=== PATIENT | female | born 1980 | race Caucasian/White ===

== ENCOUNTER 2020-04-12 13:07 | Emergency (ER) | payer OTHER ==
[2020-04-12 13:26] VITALS: BP 114/76; PULSE 81; RESP 18; TEMP 98.6
--- NOTE | 2020-04-12 14:00 | XR ---
EXAMINATION TYPE: XR ankle complete LT, XR calcaneus 2V LT DATE OF EXAM: 04/12/2020 CLINICAL HISTORY: Jumping injury with pain. TECHNIQUE: Frontal, lateral and oblique images of the left ankle are obtained. 2 views left calcaneu s. COMPARISON: None. FINDINGS: There is acute comminuted minimally displaced fracture through the posterior to mid body o f the calcaneus with intra-articular extension to the subtalar joint and extension to the posterior i nferior margin of the calcaneus. Boehler's angle is maintained. Probable os trigonum posterior aspect talus. Mild to moderate subcutaneous edema along posterior inferior calcaneal margin. There is no additional acute fracture/dislocation evident in the left ankle. The ankle mortise appea rs within normal limits. Ovoid sclerotic focus lateral aspect distal tibial metaphysis presumed benig n bone island. The overlying soft tissue appears unremarkable. IMPRESSION: There is acute comminuted minimally displaced intra-articular fracture through posterior and central body of the calcaneus without significant posterior facet depression on radiographs. (Initially encounter closed type posttraumatic fracture)
[2020-04-12] MEDS ORDERED: IBUPROFEN 600 MG TAB PO STA (15:06)
[2020-04-12] MEDS ORDERED: ACET/COD 300 MG/30 MG STARTER PACK 6 TAB BTL PO STA (15:06)
--- NOTE | 2020-04-12 15:07 | ED ---
Lower Extremity Injury HPI - General Chief Complaint: Extremity Injury, Lower Stated Complaint: Fall Time Seen by Provider: 04/12/20 13:56 Source: patient Mode of arrival: wheelchair Limitations: no limitations - History of Present Illness Initial Comments: Patient is a 40-year-old female presenting to the emergency Department with complaints of pain in her left foot. Patient states she was on a 5-6 foot ladder, pulling a cool her off a shelf in her crotch when she felt like she might fall to ladder so she jumped backwards and landed mostly on her left heel. Patient states she has not been able to put weight on her left foot since the fall. She denies hitting her head. She denies pain anywhere else in her body. She denies any previous injuries or surgeries to her left lower extremity. She denies being on blood thinners. She is no other complaints at this time. - Related Data Home Medications Medication Instructions Recorded Confirmed No Known Home Medications 12/26/14 12/26/14 Allergies Allergy/AdvReac Type Severity Reaction Status Date / Time Penicillins Allergy Swelling Verified 04/12/20 13:26 Review of Systems ROS Statement: Those systems with pertinent positive or pertinent negative responses have been documented in the HPI. ROS Other: All systems not noted in ROS Statement are negative. Past Medical History Past Medical History: No Reported History Additional Past Medical History / Comment(s): cervical cancer History of Any Multi-Drug Resistant Organisms: None Reported Past Surgical History: Hysterectomy Past Psychological History: ADD/ADHD Smoking Status: Never smoker Past Alcohol Use History: None Reported Past Drug Use History: None Reported General Exam - General Exam Comments Initial Comments: GENERAL: Well-appearing, well-nourished and in no acute distress. HEAD: Atraumatic, normocephalic. EYES: Pupils equal round and reactive to light, extraocular movements intact, sclera anicteric, conjunctiva are normal. ENT: TMs normal, nares patent, oropharynx clear without exudates. Moist mucous membranes. NECK: Normal range of motion, supple without lymphadenopathy or JVD. LUNGS: Breath sounds clear to auscultation bilaterally and equal. No wheezes rales or rhonchi. HEART: Regular rate and rhythm without murmurs, rubs or gallops. ABDOMEN: Soft, nontender, normoactive bowel sounds. No guarding, no rebound. No masses appreciated. : Deferred EXTREMITIES: Pain with palpation of the left heel, increased pain with left dorsiflexion. Patient is neurovascular intact. There is minimal swelling around the left heel. No pain of the left knee, left hip. No pain in lumbar spine. No clubbing or cyanosis. NEUROLOGICAL: Cranial nerves II through XII grossly intact. Normal speech. PSYCH: Normal mood, normal affect. SKIN: Warm, Dry, normal turgor, no rashes or lesions noted. Limitations: no limitations Course Vital Signs 04/12/20 13:21 Temperature 98.6 F Pulse Rate 81 Respiratory 18 Rate Blood Pressure 114/76 O2 Sat by Pulse 100 Oximetry Procedures - Orthopedic Splinting/Casting Injury #1 Side: left Lower Extremity Injury Location: short leg Lower Extremity Immobilizer: posterior splint, Jonas wrap, synthetic pre-padded splint Medical Decision Making - Medical Decision Making Patient is a 40-year-old female here for left foot pain after jumping off of a 5 foot ladder backwards landing on her left heel. X-rays of the left calcaneus reveal an acute comminuted minimally displaced intra-articular fracture at the posterior and central body of the calcaneus. I did discuss this patient with on-call ortho, JORGE Enriquez. Patient was placed in a posterior leg splint and will follow up with orthopedics in the office. Patient is agreement with this plan of care. She will remain nonweightbearing and elevate the leg above the heart throughout the day. Patient is stable for discharge. Case discussed with Dr. Evans. Disposition Clinical Impression: Left calcaneal fracture Disposition: HOME SELF-CARE Condition: Stable Instructions (If sedation given, give patient instructions): Calcaneal Fracture (ED) Additional Instructions: Please return to the Emergency Department if symptoms worsen or any other concerns. Keep splint in place. Follow up with orthopedics as discussed. Keep leg elevated above heart level, continue with anti-inflammatories for pain and swelling. Is patient prescribed a controlled substance at d/c from ED?: No Referrals: Eriberto Malik DO [Primary Care Provider] - 1-2 days Justino Cotto MD [Medical Doctor] - 1-2 days
== END 2020-04-12 15:46 | disposition home or self-care (01) ==
LOC: EC 13:07
DX: S92.002A Unspecified fracture of left calcaneus, initial encounter for closed fracture (principal); S92.062A Displaced intraarticular fracture of left calcaneus, initial encounter for closed fracture; Z88.0 Allergy status to penicillin; Z85.41 Personal history of malignant neoplasm of cervix uteri; W17.89XA Other fall from one level to another, initial encounter; Y93.89 Activity, other specified; Y92.009 Unspecified place in unspecified non-institutional (private) residence as the place of occurrence of the external cause
CPT/HCPCS: 29515; 99283

== ENCOUNTER → 2020-04-14 | Outpatient (CLI) | payer OTHER ==
--- NOTE | 2020-04-14 16:39 | CT ---
EXAMINATION TYPE: CT ankle LT wo con DATE OF EXAM: 04/14/2020 COMPARISON: Radiograph 04/12/2020 HISTORY: 40-year-old female Left calcaneous fracture post fall TECHNIQUE: Contiguous axial scanning of the left ankle without IV contrast. Coronal and sagittal casper nstructions performed. 3-D reconstructions generated on a dedicated independent workstation. CT DLP: 189.8 mGycm Automated exposure control for dose reduction was used. FINDINGS: There is a comminuted fracture involving the posterior inferior aspect of the calcaneus. Minimal sepa ration of fragments up to 4 mm is present along with minimal impaction of 3 mm. . [employer] An obliquely oriented fracture extends anteriorly and superiorly from here into the body of the calca neus. Laterally, this extends into the posterior subtalar joint. Medially, this extends into the post erior portion of the sustentaculum kristi and middle subtalar joint. No significant articular surface i ncongruity. Associated soft tissue swelling. Os trigonum noted. Achilles tendon appears intact. No additional acute fracture is identified. [id number] underlying tibiotalar joint effusion. IMPRESSION: 1. COMMINUTED FRACTURE OF THE POSTERIOR INFERIOR ASPECT OF THE CALCANEUS. MINIMAL SEPARATION OF FRACT URE FRAGMENTS UP TO 4 MM AND MINIMAL IMPACTION OF 3 MM. 2. AN OBLIQUELY ORIENTED FRACTURE EXTENDS ANTERIORLY AND SUPERIORLY FROM HERE INTO THE CALCANEAL BODY . THERE IS INTRA-ARTICULAR EXTENSION LATERALLY INTO THE POSTERIOR SUBTALAR JOINT AND MEDIALLY INTO TH E POSTERIOR PORTION OF THE SUSTENTACULUM KRISTI AND MIDDLE SUBTALAR JOINT. 3. NO ARTICULAR SURFACE STEP-OFF.
== END | disposition home or self-care (01) ==
LOC: RADCTMAIN 15:36
PROVIDERS: ATTEND Orthopaedic Surgery
DX: S92.062A Displaced intraarticular fracture of left calcaneus, initial encounter for closed fracture (principal); S92.002A Unspecified fracture of left calcaneus, initial encounter for closed fracture

== ENCOUNTER → 2024-02-26 | Outpatient (CLI) | payer BC, OTHER ==
--- NOTE | 2024-02-26 12:18 | US ---
EXAMINATION TYPE: US abdomen complete DATE OF EXAM: 02/26/2024 COMPARISON: NONE CLINICAL INDICATION: Female, 44 years old with history of K81.0 CHOLECYSTITIS; RUQ pain, nausea TECHNIQUE: Multiple sonographic images of the abdomen are obtained. FINDINGS: EXAM MEASUREMENTS: Liver Length: 16.0 cm Gallbladder Wall: 0.3 cm CBD: 0.3 cm Spleen: 9.1 cm Right Kidney: 10.2 x 3.9 x 4.4 cm Left Kidney: 11.3 x 4.7 x 3.7 cm Pancreas: Obscured by bowel gas Liver: wnl Gallbladder: no evidence of stones Evidence for sonographic Moser's sign: no CBD: wnl Spleen: wnl Right Kidney: no evidence of hydronephrosis Left Kidney: no evidence of hydronephrosis Upper IVC: wnl Abd Aorta: wnl The liver is homogenous. The intrahepatic portion of the IVC and proximal abdominal aorta are within normal limits. There is no evidence of cholelithiasis. Common bile duct is unremarkable. The visu alized portions of the pancreas are homogenous. The spleen is unremarkable. Kidneys are symmetric a nd free of hydronephrosis. No renal lesions are seen. IMPRESSION: Unremarkable study
== END | disposition home or self-care (01) ==
LOC: RADUSWWP 07:10
PROVIDERS: ATTEND Family Medicine
DX: K81.0 Acute cholecystitis (principal)
CPT/HCPCS: 76700